=== PATIENT | female | born 1990 | race Hispanic/Latino ===

== ENCOUNTER 2018-11-21 13:35 | Emergency (ER) | payer MEDICAID ==
[~2018-11-21 13:35] MED LIST: DOCU240C80 PO; MO8B PO; PNV91TAB3 PO; TYL3 PO
[2018-11-21 14:21] LABS: BASOPHILS % (AUTO) 0.7 % (0.0-5.0); EOSINOPHILS % (AUTO) 0.6 % (0.0-8.0); HEMATOCRIT 35.9 % (36-48); MEAN CORPUSCULAR HEMOGLOBIN 27.7 pg (27.0-33.0); MEAN CORPUSCULAR HGB CONC 32.9 g/dL (32.0-36.0); MEAN CORPUSCULAR VOLUME 84.1 fL (79-99); MONOCYTES % (AUTO) 9.5 % (3.0-13.0); NEUTROPHILS % (AUTO) 53.2 % (40.0-77.0); PLATELET COUNT (AUTO) 320 K/uL (130-400); RED BLOOD CELL COUNT(AUTO) 4.27 MIL/uL (4.00-5.50); RED CELL DISTRIBUTION WIDTH 14.4 % (11.0-15.5); WHITE BLOOD COUNT (AUTO) 5.3 K/uL (4.8-10.8)
[2018-11-21 14:29] LABS: CREATININE 0.9 mg/dL (0.5-1.5); POTASSIUM 3.4 mmol/L (3.5-5.1)
[2018-11-21 14:33] LABS: ALBUMIN 3.8 g/dL (3.5-5.0); BILIRUBIN,TOTAL 0.3 mg/dL (0.2-1.0); TOTAL PROTEIN, SERUM 8.3 g/dL (6.0-8.3)
[2018-11-21 14:48] LABS: APPEARANCE,URINE Cloudy (CLEAR); BILIRUBIN,URINE Negative (NEGATIVE); COLOR,URINE Yellow (YELLOW); GLUCOSE, URINE (UA) Negative (NEGATIVE); KETONES,URINE Trace mg/dL (NEGATIVE); LEUKOCYTE ESTERASE ,URINE Large (NEGATIVE); NITRATE,URINE Negative (NEGATIVE); OCCULT BLOOD,URINE Negative (NEGATIVE); PH,URINE >=9.0 (5.0-8.0); PROTEIN,URINE POS 1+ (NEGATIVE)
[2018-11-21 14:52] LABS: HCG,QUAL RESULT NEGATIVE (NEGATIVE)
[2018-11-21 15:06] LABS: BACTERIA,URINE Moderate /HPF (None Seen); RBC,URINE None Seen /HPF (0-1); WBC,URINE 51-100 /HPF (0-1)
[2018-11-21 15:07] LABS: AMORPHOUS SEDIMENT,UR Moderate /LPF (None Seen)
[2018-11-21] MEDS ORDERED: SODIUM CHLORIDE 0.9% 50 ML IV ONE (15:11)
[2018-11-21] MEDS ORDERED: CEFTRIAXONE SODIUM 1 GM ONE (15:11)
[2018-11-21] MEDS ORDERED: ONDANSETRON HCL 4 MG/2 ML VIAL ONE (15:17)
== END 2018-11-21 15:49 | disposition home or self-care (01) ==
LOC: EDH 13:35
DX: N39.0 Urinary tract infection, site not specified (principal); R11.2 Nausea with vomiting, unspecified; R19.7 Diarrhea, unspecified; F32.9 Major depressive disorder, single episode, unspecified; F41.9 Anxiety disorder, unspecified; Z72.0 Tobacco use
CPT/HCPCS: 36415; 80053; 81001; 81025; 83690; 85025; 87077; 87088; 87186; 96374; 96375; 99283; J0696; J2405

== ENCOUNTER 2019-12-28 11:30 | Emergency (ER) | payer MEDICAID ==
[~2019-12-28 11:30] MED LIST changes: +IBUP-1493 PO; -MO8B PO
[2019-12-28] MEDS ORDERED: ACETAMINOPHEN 325 MG TAB ONE (12:06)
== END 2019-12-28 15:28 | disposition home or self-care (01) ==
LOC: EDH 11:30
DX: S92.322A Displaced fracture of second metatarsal bone, left foot, initial encounter for closed fracture (principal); S92.332A Displaced fracture of third metatarsal bone, left foot, initial encounter for closed fracture; F41.9 Anxiety disorder, unspecified; F32.9 Major depressive disorder, single episode, unspecified; Z98.890 Other specified postprocedural states; Z72.0 Tobacco use; X58.XXXA Exposure to other specified factors, initial encounter; Y93.39 Activity, other involving climbing, rappelling and jumping off; Y92.098 Other place in other non-institutional residence as the place of occurrence of the external cause; Y99.8 Other external cause status
CPT/HCPCS: 73610; 73630; 73700

== ENCOUNTER 2024-01-01 22:05 | Emergency (ER) | payer MEDICARE ==
[~2024-01-01] VITALS: Ht 157.5 cm; Wt 70.3 kg
[2024-01-01 22:21] LABS: ABG BASE EXCESS -10.9 mmol/L (-2.0-3.0); ABG HCO3 13.8 mmol/L (21.0-28.0); ABG OXYGEN SATURATION 97.5 % (95.0-99.0); ABG PCO2 26 mmHg (32-45); ABG PH 7.345 (7.350-7.450); CARBON MONOXIDE 2.6; DEVICE COMMENT NRBM; HHb 2.4; PO2, ARTERIAL BG 126.8 mmHg (83.0-108.0); VENT MODE, BG NRBM (ROOM AIR)
[2024-01-01 22:23] LABS: BASOPHILS # (AUTO) 0.01 K/uL (0.00-0.20); BASOPHILS % (AUTO) 0.2 % (0.0-5.0); EOSINOPHILS # (AUTO) 0.06 K/uL (0.00-0.70); EOSINOPHILS % (AUTO) 1.1 % (0.0-8.0); IMMATURE GRANULOCYTE ABSOLUTE 0.02 K/uL (0-1); LYMPHOCYTES # (AUTO) 2.3 K/uL (1.0-4.8); LYMPHOCYTES % (AUTO) 41.1 % (21.0-51.0); MEAN CORPUSCULAR HEMOGLOBIN 25.3 pg (27.0-33.0); MEAN CORPUSCULAR HGB CONC 31.9 g/dL (32.0-36.0); MEAN CORPUSCULAR VOLUME 79.3 fL (79-99); MONOCYTES # (AUTO) 0.6 K/uL (0.1-1.0); MONOCYTES % (AUTO) 10.3 % (3.0-13.0); NEUTROPHILS # (AUTO) 2.7 K/uL (1.8-7.7); NEUTROPHILS % (AUTO) 46.9 % (40.0-77.0); PLATELET COUNT (AUTO) 217 K/uL (130-400); RED BLOOD CELL COUNT(AUTO) 4.54 MIL/uL (4.00-5.50); RED CELL DISTRIBUTION WIDTH 20.5 % (11.0-15.5); WHITE BLOOD COUNT (AUTO) 5.7 K/uL (4.8-10.8)
[2024-01-01 22:31] LABS: CREATININE 0.7 mg/dL (0.5-1.0); POTASSIUM 3.6 mmol/L (3.5-5.1)
[2024-01-01 22:36] LABS: APPEARANCE,URINE CLEAR (CLEAR); BILIRUBIN,URINE NEGATIVE (NEGATIVE); COLOR,URINE LIGHT-YELLOW (YELLOW); GLUCOSE, URINE (UA) NEGATIVE (NEGATIVE); KETONES,URINE NEGATIVE (NEGATIVE); LEUKOCYTE ESTERASE ,URINE 75 Leu/uL (NEGATIVE); NITRATE,URINE NEGATIVE (NEGATIVE); OCCULT BLOOD,URINE NEGATIVE (NEGATIVE); PH,URINE 6.5 (5.0-8.0); PROTEIN,URINE NEGATIVE (NEGATIVE); UROBILINOGEN,URINE 0.2 mg/dL (0.2-1.0)
[2024-01-01] MEDS: 0.9%NACL 1000ML 1,503 ML IV ONE (22:41)
[2024-01-01 22:42] LABS: ADD UA MICROSCOPIC YES; ALBUMIN 3.2 g/dL (3.5-5.0); AMPHET/METH SCREEN,URINE POSITIVE (NEGATIVE); BARBITURATE SCREEN, URINE NEGATIVE (NEGATIVE); BENZODIAZEPINES SCREEN,URINE POSITIVE (NEGATIVE); BILIRUBIN,TOTAL 0.4 mg/dL (0.2-1.0); CANNABINOID SCREEN,URINE NEGATIVE (NEGATIVE); COCAINE SCREEN,URINE POSITIVE (NEGATIVE); OPIATE SCREEN,URINE NEGATIVE (NEGATIVE); PHENCYCLIDINE SCREEN,URINE NEGATIVE (NEGATIVE); TOTAL PROTEIN, SERUM 7.4 g/dL (6.0-8.3)
[2024-01-01 22:43] LABS: BACTERIA,URINE RARE /HPF (None Seen); RBC,URINE 0-1 /HPF (0-1); SQUAMOUS EPITHELIAL CELL,UR FEW /HPF (0-2)
[2024-01-01 22:54] LABS: CREATINE KINASE, TOTAL 130 U/L (21-232)
[2024-01-01] MEDS: FLUMAZENIL 0.1MG/1ML 5ML VIAL IV SCH (23:06)
[2024-01-01] MEDS: NALOXONE HCL 1 MG/ML 2ML SYG IV SCH (23:06)
[2024-01-01] MEDS: CEFTRIAXONE 2GM VIAL IVPB ONE (23:58)
[2024-01-02] MEDS: TETANUS/DIPHTHERIA TOXOID [ADULT] 0.5 ML VIAL IM ONE (00:09)
[2024-01-02] MEDS ORDERED: CEPH500T PO (01:12)
[2024-01-02 01:19] VITALS: BP 144/87; PULSE 66; RESP 16; O2SAT 100
== END 2024-01-02 01:37 | disposition home or self-care (01) ==
LOC: EDH 22:05
DX: N39.0 Urinary tract infection, site not specified (principal); F19.10 Other psychoactive substance abuse, uncomplicated; R10.2 Pelvic and perineal pain
CPT/HCPCS: 99285; 70450; 96365; 71045; 96375; 82947; 82550 ×2; 84484; 80053; 82803; 80305; 84703; 84702; 83690; 85025; 86850; 86900; 86901; 87077; 87088; 87186; 83605 ×2; 36415; 72170; 72125; 93005; 36600; 81001; 82435; 84132; 85018; 84295; 90714; 90471; J0696; J2310